=== PATIENT | male | born 1945 | race Caucasian/White ===

== ENCOUNTER 2018-05-09 09:20 | Inpatient (IN) | payer MEDICARE, OTHER ==
[~2018-05-09] VITALS: Ht 172.7 cm; Wt 68.2 kg
[2018-05-09] MEDS ORDERED: SODIUM CHLORIDE 0.9% 1,000ML IVBOLUS ONE ×3 (10:00→12:30)
[2018-05-09] MEDS ORDERED: ACETAMINOPHEN 500 MG TABLET PO ONE (10:00)
[2018-05-09] MEDS ORDERED: ACETAMINOPHEN 500 MG TABLET ONE (10:28)
[2018-05-09] MEDS ORDERED: PLEASE ENTER ALLERGIES MC SCH (10:30)
[2018-05-09 10:37] LABS: BASOPHILS # (AUTO) 0.01 x10^3/uL (0-0.1); BASOPHILS % (AUTO) 0 % (0-1); EOSINOPHILS % (AUTO) 0 % (1-7); LYMPHOCYTES # (AUTO) 0.45 x10^3/uL (1-3.4); LYMPHOCYTES % (AUTO) 6 % (22-44); MD NO; MEAN CORPUSCULAR HEMOGLOBIN 32.8 pg (27.5-34.5); MEAN CORPUSCULAR HGB CONC 34.2 g/dL (33.2-36.2); MEAN CORPUSCULAR VOLUME 95.9 fL (81-97); MEAN PLATELET VOLUME 8.3 fL (7.4-10.4); MONOCYTES # (AUTO) 0.05 x10^3/uL (0.2-0.8); MONOCYTES % (AUTO) 1 % (2-9); NEUTROPHILS # (AUTO) 7.62 x10^3/uL (1.8-6.8); NEUTROPHILS % (AUTO) 94 % (42-75); PLATELET COUNT 157 x10^3/uL (130-400); RED BLOOD COUNT 4.15 x10^6/uL (4.38-5.82); RED CELL DISTRIBUTION WIDTH 13.7 % (9.4-14.8)
[2018-05-09 10:43] LABS: INTERNATIONAL NORMALIZED RATIO 1.08 (0.93-1.1); PROTHROMBIN TIME 11.2 Seconds (9.6-11.5)
[2018-05-09 10:44] LABS: ALBUMIN 2.7 g/dL (3.4-5.0); ANION GAP 12 mmol/L (5-15); CALCIUM 8.5 mg/dL (8.5-10.1); CHLORIDE 106 mmol/L (98-107)
[2018-05-09 10:48] LABS: ALANINE AMINOTRANSFERASE 121 U/L (12-78); ALKALINE PHOSPHATASE 189 U/L (45-117); BILIRUBIN,TOTAL 1.7 mg/dL (0.2-1.0); CREATININE 1.46 mg/dL (0.7-1.3)
[2018-05-09] MEDS ORDERED: CEFTRIAXONE PMX 1GM/50ML 50 ML ONE (11:40)
[2018-05-09] MEDS ORDERED: CEFTRIAXONE 1,000 MG in SODIUM CHLORIDE 0.9% 50 ML IV ONE (12:00)
[2018-05-09 13:30] LABS: CULTURE INDICATED? YES; MICROSCOPIC INDICATED
[2018-05-09] MEDS ORDERED: LORazepam 1MG TABLET PO PRN (13:30)
[2018-05-09] MEDS: CEFTRIAXONE 1,000 MG in SODIUM CHLORIDE 0.9% 50 ML IV SCH (13:30)
[2018-05-09] MEDS ORDERED: POLYETHYLENE GLYCOL 17 GM PACKET PO PRN (13:30)
[2018-05-09] MEDS ORDERED: NOREPINEPHRINE 4 MG in SODIUM CHLORIDE 0.9% 246 ML IV PRN ×2 (13:30→14:30)
[2018-05-09] MEDS ORDERED: ONDANSETRON ODT 4 MG PO PRN (13:30)
[2018-05-09] MEDS ORDERED: ONDANSETRON 2MG/ML, 2ML IVPush PRN (13:30)
[2018-05-09] MEDS ORDERED: ACETAMINOPHEN 325 MG TABLET PO PRN (13:30)
[2018-05-09] MEDS ORDERED: BISACODYL 10 MG SUPP PR PRN (13:30)
[2018-05-09] MEDS ORDERED: TEMAZEPAM 15 MG CAPSULE PO PRN (13:30)
[2018-05-09] MEDS ORDERED: IBUPROFEN 600 MG TABLET PO PRN (13:30)
[2018-05-09 14:45] LABS: RAPID INFLUENZA A Negative (Negative); RAPID INFLUENZA B Negative (Negative)
[2018-05-09] MEDS: SODIUM CHLORIDE 0.9% 1,000 ML IV SCH (15:07)
[2018-05-09] MEDS: ENOXAPARIN 40 MG/0.4 ML SQ SCH (15:08)
[2018-05-09] MEDS: NICOTINE 21 MG/24 HR PATCH.TD24 TD SCH (15:09)
[2018-05-09 16:10] VITALS: BP 97/68
[2018-05-09] MEDS ORDERED: PHARMACOKINETIC MONITORING MC PRN (18:30)
[2018-05-09] MEDS ORDERED: VANCOMYCIN PER PHARMACY MC PRN (18:30)
[2018-05-09] MEDS ORDERED: PHARMACOKINETIC CONSULTATION MC ONE (18:30)
[2018-05-09] MEDS: VANCOMYCIN 1,300 MG in SODIUM CHLORIDE 0.9% 250 ML IV SCH (18:57)
[2018-05-09] MEDS ORDERED: OSELTAMIVIR 75 MG CAPSULE PO SCH (21:00)
[2018-05-10] MEDS: SODIUM CHLORIDE 0.9% 1,000 ML IV SCH ×2 (00:08→07:00)
[2018-05-10 04:00] VITALS: BP 118/70
[2018-05-10 04:28] LABS: BASOPHILS # (AUTO) 0.01 x10^3/uL (0-0.1); BASOPHILS % (AUTO) 0 % (0-1); EOSINOPHILS # (AUTO) 0.03 x10^3/uL (0-0.4); EOSINOPHILS % (AUTO) 0 % (1-7); LYMPHOCYTES % (AUTO) 12 % (22-44); MD NO; MEAN CORPUSCULAR HEMOGLOBIN 32.9 pg (27.5-34.5); MEAN CORPUSCULAR VOLUME 96.8 fL (81-97); MEAN PLATELET VOLUME 8.2 fL (7.4-10.4); MONOCYTES # (AUTO) 0.79 x10^3/uL (0.2-0.8); MONOCYTES % (AUTO) 8 % (2-9); NEUTROPHILS # (AUTO) 8.06 x10^3/uL (1.8-6.8); NEUTROPHILS % (AUTO) 80 % (42-75); PLATELET COUNT 150 x10^3/uL (130-400); RED BLOOD COUNT 3.46 x10^6/uL (4.38-5.82); RED CELL DISTRIBUTION WIDTH 14.5 % (9.4-14.8)
[2018-05-10 04:34] LABS: ALANINE AMINOTRANSFERASE 138 U/L (12-78); ANION GAP 7 mmol/L (5-15); CALCIUM 7.4 mg/dL (8.5-10.1); CHLORIDE 116 mmol/L (98-107); CREATININE 0.94 mg/dL (0.7-1.3)
[2018-05-10 04:36] LABS: ALKALINE PHOSPHATASE 183 U/L (45-117); BILIRUBIN,TOTAL 0.7 mg/dL (0.2-1.0); TOTAL PROTEIN 5.7 g/dL (6.4-8.2)
[2018-05-10] MEDS: SENNA/DOCUSATE TABLET PO SCH (08:33)
[2018-05-10] MEDS: CEFTRIAXONE 1,000 MG in SODIUM CHLORIDE 0.9% 50 ML IV SCH (13:54)
[2018-05-10] MEDS: ENOXAPARIN 40 MG/0.4 ML SQ SCH (13:54)
[2018-05-10] MEDS: NICOTINE 21 MG/24 HR PATCH.TD24 TD SCH (13:55)
[2018-05-10] MEDS: VANCOMYCIN 1,300 MG in SODIUM CHLORIDE 0.9% 250 ML IV SCH (18:01)
[2018-05-10 19:24] VITALS: BP 137/80
[2018-05-11 00:32] VITALS: BP 136/77
[2018-05-11 04:58] LABS: BASOPHILS # (AUTO) 0.02 x10^3/uL (0-0.1); BASOPHILS % (AUTO) 0 % (0-1); EOSINOPHILS # (AUTO) 0.02 x10^3/uL (0-0.4); EOSINOPHILS % (AUTO) 0 % (1-7); LYMPHOCYTES # (AUTO) 1.81 x10^3/uL (1-3.4); LYMPHOCYTES % (AUTO) 17 % (22-44); MD NO; MEAN CORPUSCULAR HEMOGLOBIN 32.8 pg (27.5-34.5); MEAN CORPUSCULAR HGB CONC 33.8 g/dL (33.2-36.2); MEAN PLATELET VOLUME 8.1 fL (7.4-10.4); MONOCYTES # (AUTO) 0.98 x10^3/uL (0.2-0.8); MONOCYTES % (AUTO) 9 % (2-9); NEUTROPHILS # (AUTO) 8.04 x10^3/uL (1.8-6.8); NEUTROPHILS % (AUTO) 74 % (42-75); PLATELET COUNT 178 x10^3/uL (130-400); RED BLOOD COUNT 3.55 x10^6/uL (4.38-5.82)
[2018-05-11 05:00] LABS: CHLORIDE 113 mmol/L (98-107)
[2018-05-11 05:07] LABS: ALANINE AMINOTRANSFERASE 117 U/L (12-78); ALKALINE PHOSPHATASE 291 U/L (45-117); ANION GAP 7 mmol/L (5-15); BILIRUBIN,TOTAL 0.8 mg/dL (0.2-1.0); CALCIUM 7.8 mg/dL (8.5-10.1); CREATININE 0.97 mg/dL (0.7-1.3); TOTAL PROTEIN 5.9 g/dL (6.4-8.2)
[2018-05-11 07:28] VITALS: BP 134/79
[2018-05-11] MEDS: SENNA/DOCUSATE TABLET PO SCH (09:00)
[2018-05-11] MEDS ORDERED: NICO-486 TD (12:03)
[2018-05-11] MEDS ORDERED: NICO-487 TD (12:03)
[2018-05-11] MEDS: ENOXAPARIN 40 MG/0.4 ML SQ SCH (13:30)
[2018-05-11] MEDS: CEFTRIAXONE 1,000 MG in SODIUM CHLORIDE 0.9% 50 ML IV SCH (13:30)
[2018-05-11 14:00] VITALS: BP 126/74
[2018-05-11] MEDS: NICOTINE 21 MG/24 HR PATCH.TD24 TD SCH (14:36)
== END 2018-05-11 15:35 | disposition home or self-care (01) | DRG 682 ==
LOC: ED 11:19 → EDIP 13:23 → CCU 14:48 → 3NE 05-10 15:23
PROVIDERS: ADMIT Internal Medicine; ATTEND Internal Medicine
PROC: 02HV33Z Insertion of Infusion Device into Superior Vena Cava, Percutaneous Approach (ICD-10-PCS; principal; 2018-05-09)
PROC: B548ZZA Ultrasonography of Superior Vena Cava, Guidance (ICD-10-PCS; 2018-05-09)
DX: N17.9 Acute kidney failure, unspecified (principal); E43 Unspecified severe protein-calorie malnutrition; N39.0 Urinary tract infection, site not specified; F17.210 Nicotine dependence, cigarettes, uncomplicated; J44.9 Chronic obstructive pulmonary disease, unspecified; K57.90 Diverticulosis of intestine, part unspecified, without perforation or abscess without bleeding; I25.10 Atherosclerotic heart disease of native coronary artery without angina pectoris; K75.9 Inflammatory liver disease, unspecified; Z71.6 Tobacco abuse counseling; Z68.22 Body mass index [BMI] 22.0-22.9, adult
CPT/HCPCS: 36415; 36556; 71045; 71250; 74176; 80053; 80074; 81001; 83605; 83690; 83735; 84100; 84145; 85025; 85610; 85730; 86708; 87040; 87081; 87086; 87400; 93005; 96361; 96365; 99291; G0378; J0696; J1650; J3370; J7030; J7050